=== PATIENT | female | born 1990 | race Caucasian/White ===

== ENCOUNTER 2017-01-04 19:30 | Emergency (ER) | payer MEDICAID ==
[~2017-01-04] VITALS: Ht 154.9 cm; Wt 65.0 kg
[2017-01-04 20:38] LABS: CLARITY URINE CLEAR (CLEAR); COLOR URINE YELLOW (YELLOW); GLUCOSE URINE NEGATIVE (NEGATIVE); KETONES URINE NEGATIVE (NEGATIVE); LEUKOCYTE ESTERASE URINE NEGATIVE (NEGATIVE); NITRITE URINE NEGATIVE (NEGATIVE); OCCULT BLOOD URINE NEGATIVE (NEGATIVE); PH URINE 6.5 (4.5-8.0); PROTEIN URINE NEGATIVE (NEGATIVE); SPECIFIC GRAVITY URINE 1.005 (1.005-1.030); UROBILINOGEN URINE 0.2 E.U./dL (0.2-1.0)
[2017-01-04] MEDS ORDERED: KETOROLAC 60MG/2ML VIAL IM ONE (21:15)
[2017-01-04 21:32] VITALS: BP 136/67
== END 2017-01-04 22:05 | disposition home or self-care (01) ==
LOC: ER 19:30
DX: G89.29 Other chronic pain (principal); M54.5 Low back pain
CPT/HCPCS: 81003; 81025; 96372; 99283; J1885

== ENCOUNTER 2017-07-13 14:43 | Emergency (ER) | payer MEDICAID ==
[~2017-07-13] VITALS: Ht 154.9 cm; Wt 82.0 kg
[2017-07-13] MEDS ORDERED: KETOROLAC 60MG/2ML VIAL IM STA (16:40)
[2017-07-13 17:07] LABS: CLARITY URINE CLEAR (CLEAR); COLOR URINE DARK YELLOW (YELLOW); KETONES URINE NEGATIVE (NEGATIVE); LEUKOCYTE ESTERASE URINE NEGATIVE (NEGATIVE); NITRITE URINE NEGATIVE (NEGATIVE); OCCULT BLOOD URINE NEGATIVE (NEGATIVE); PROTEIN URINE NEGATIVE (NEGATIVE); SPECIFIC GRAVITY URINE 1.027 (1.005-1.030); UROBILINOGEN URINE 0.2 E.U./dL (0.2-1.0)
[2017-07-13] MEDS ORDERED: TRAMADOL 50MG TABLET PO ONE (17:45)
[2017-07-13 18:01] VITALS: BP 145/90
== END 2017-07-13 19:18 | disposition home or self-care (01) ==
LOC: ER 15:31
DX: M54.5 Low back pain (principal)
CPT/HCPCS: 81003; 96372; 99283; J1885

== ENCOUNTER 2017-08-12 05:08 | Emergency (ER) | payer MEDICAID ==
[~2017-08-12] VITALS: Ht 154.9 cm; Wt 82.0 kg
[2017-08-12 07:34] VITALS: BP 105/60
== END 2017-08-12 07:49 | disposition home or self-care (01) ==
LOC: ER 05:08
DX: S62.633A Displaced fracture of distal phalanx of left middle finger, initial encounter for closed fracture (principal); X50.9XXA Other and unspecified overexertion or strenuous movements or postures, initial encounter; Y93.89 Activity, other specified; Y92.89 Other specified places as the place of occurrence of the external cause; Y99.8 Other external cause status
CPT/HCPCS: 29130; 73130; 81025; 99284; Z7610

== ENCOUNTER 2018-04-10 12:17 | Emergency (ER) | payer MEDICAID ==
[~2018-04-10] VITALS: Ht 154.9 cm; Wt 80.0 kg
[2018-04-10 12:33] VITALS: BP 104/83
== END 2018-04-10 13:03 | disposition left against medical advice (07) ==
LOC: ER 12:17
DX: R68.89 Other general symptoms and signs (principal); Z53.21 Procedure and treatment not carried out due to patient leaving prior to being seen by health care provider

== ENCOUNTER 2018-09-11 01:11 | Emergency (ER) | payer BC, MEDICAID ==
[~2018-09-11] VITALS: Ht 160 cm; Wt 71.0 kg
[2018-09-11 02:05] LABS: CLARITY URINE CLEAR (CLEAR); COLOR URINE YELLOW (YELLOW); KETONES URINE NEGATIVE (NEGATIVE); LEUKOCYTE ESTERASE URINE NEGATIVE (NEGATIVE); NITRITE URINE NEGATIVE (NEGATIVE); OCCULT BLOOD URINE NEGATIVE (NEGATIVE); PH URINE 6.5 (4.5-8.0); PROTEIN URINE NEGATIVE (NEGATIVE); SPECIFIC GRAVITY URINE 1.003 (1.005-1.030); UROBILINOGEN URINE 0.2 E.U./dL (0.2-1.0)
[2018-09-11 02:22] LABS: *AMPHETAMINES SCREEN URINE NEGATIVE (NEGATIVE); *BARBITURATES SCREEN URINE NEGATIVE (NEGATIVE)
[2018-09-11 02:23] LABS: *BENZODIAZEPINES SCREEN URINE NEGATIVE (NEGATIVE); *COCAINE SCREEN URINE NEGATIVE (NEGATIVE); CANNABINOID URINE SCREEN NEGATIVE (NEGATIVE); METHADONE URINE SCREEN NEGATIVE (NEGATIVE); OPIATES URINE SCREEN NEGATIVE (NEGATIVE); PHENCYCLIDINE URINE SCREEN NEGATIVE (NEGATIVE)
[2018-09-11 02:26] LABS: BASOPHILS % 0.7 % (0.0-2.0); EOSINOPHILS % 1.2 % (0.0-5.0); HEMATOCRIT. 43.8 % (36.0-48.0); HEMOGLOBIN. 15.4 g/dL (12.0-16.0); LYMPHOCYTES % 45.6 % (20.0-50.0); MEAN CORPUSCULAR HEMOGLOBIN 32.8 pg (28.0-32.0); MEAN CORPUSCULAR VOLUME 93.3 fL (81.0-99.0); MEAN PLATELET VOLUME 8.2 fl (7.4-10.4); MONOCYTES % 4.3 % (2.0-8.0); NEUTROPHILS % 48.2 % (40.0-76.0); PLATELET 398 x1000/uL (130-400); RED CELL DISTRIBUTION WIDTH 12.5 % (11.6-14.6)
[2018-09-11 02:29] LABS: CHLORIDE 109 mEq/L (98-107)
[2018-09-11 02:32] LABS: HCG SCREEN NEGATIVE
[2018-09-11] MEDS ORDERED: SODIUM CHLORIDE 0.9% 1,000 ML IV ONE ×2 (02:45→05:45)
[2018-09-11 02:51] LABS: ETHANOL BLOOD 326 mg/dL
[2018-09-11 06:33] VITALS: BP 112/70
== END 2018-09-11 06:49 | disposition home or self-care (01) ==
LOC: ER 01:43
DX: F10.129 Alcohol abuse with intoxication, unspecified (principal); Y90.8 Blood alcohol level of 240 mg/100 ml or more; R74.8 Abnormal levels of other serum enzymes
CPT/HCPCS: 36415; 80053; 80305; 80320; 81003; 81025; 84703; 85025; 99283; Z7610; G0480

== ENCOUNTER 2020-08-04 14:33 | Emergency (ER) | payer BC ==
[~2020-08-04] VITALS: Ht 154.9 cm; Wt 77.0 kg
[2020-08-04 15:15] VITALS: BP 128/94
[2020-08-04 16:14] LABS: CLARITY URINE TURBID (CLEAR); COLOR URINE DARK YELLOW (YELLOW); KETONES URINE TRACE (NEGATIVE); LEUKOCYTE ESTERASE URINE 2+ (NEGATIVE); NITRITE URINE POSITIVE (NEGATIVE); OCCULT BLOOD URINE 3+ (NEGATIVE); PROTEIN URINE 3+ (NEGATIVE); SPECIFIC GRAVITY URINE 1.028 (1.005-1.030)
[2020-08-04] MEDS ORDERED: PHEN-815 MT (17:57)
[2020-08-04] MEDS ORDERED: NITR100C MT (17:57)
== END 2020-08-04 18:04 | disposition home or self-care (01) ==
LOC: ER 14:33
DX: N39.0 Urinary tract infection, site not specified (principal)
CPT/HCPCS: 76830; 76856; 81003; 81025; 87210; 87491; 87591; 99284

== ENCOUNTER 2022-06-23 07:17 | Emergency (ER) | payer BC ==
[~2022-06-23] VITALS: Ht 154.9 cm; Wt 82.0 kg
[~2022-06-23 07:17] MED LIST: FERR-63 PO; IBUP-2029 MT; NORE0.3520 MT
[2022-06-23 07:24] VITALS: BP 132/96
[2022-06-23] MEDS ORDERED: FLUORESCEIN SODIUM 1MG/STRIP LEFTEYE ONE (10:45)
[2022-06-23] MEDS ORDERED: OFLO5DRO3 LEFTEYE (12:07)
[2022-06-23] MEDS ORDERED: PRED5DRO22 LEFTEYE (12:07)
== END 2022-06-23 12:27 | disposition home or self-care (01) ==
LOC: ER 07:17
DX: H53.142 Visual discomfort, left eye (principal); R03.0 Elevated blood-pressure reading, without diagnosis of hypertension
CPT/HCPCS: 99283

== ENCOUNTER 2023-09-23 15:17 | Emergency (ER) | payer BC, MEDICAID ==
[~2023-09-23] VITALS: Ht 154.9 cm; Wt 72.0 kg
[~2023-09-23 15:17] MED LIST changes: +OCUFLX LEFTEYE; +PRED5DRO22 LEFTEYE
[2023-09-23 15:25] VITALS: O2SAT 99
[2023-09-23] MEDS ORDERED: AMOX1TAB16 MT (18:24)
[2023-09-23] MEDS: DEXAMETHASONE 4MG TABLET PO ONE (18:51)
[2023-09-23 18:53] VITALS: BP 124/69; PULSE 88; RESP 18; TEMP 98.3
== END 2023-09-23 18:55 | disposition home or self-care (01) ==
LOC: ER 15:17
DX: J02.9 Acute pharyngitis, unspecified (principal); Z79.899 Other long term (current) drug therapy
CPT/HCPCS: 99283; J8540